=== PATIENT | female | born 1980 | race Caucasian/White ===

== ENCOUNTER 2019-12-29 23:01 | Emergency (ER) | payer SELFPAY ==
[~2019-12-29] VITALS: Ht 149.9 cm; Wt 52.3 kg
[2019-12-29 23:06] VITALS: BP 154/95; Ht 149.9 cm; Wt 52.3 kg
== END 2019-12-30 00:21 | disposition home or self-care (01) ==
LOC: D.ER 23:01
DX: G43.909 Migraine, unspecified, not intractable, without status migrainosus (principal); R11.0 Nausea

== ENCOUNTER 2021-04-01 02:47 | Emergency (ER) | payer MEDICAID ==
[~2021-04-01] VITALS: Ht 149.9 cm; Wt 54.5 kg
[2021-04-01 02:50] VITALS: BP 90/52; Ht 149.9 cm; Wt 54.5 kg
[2021-04-01] MEDS ORDERED: BACLOFEN10 MG PO (02:54)
[2021-04-01] MEDS ORDERED: BUTALB-APAP-CA1 EACH PO (02:55)
[2021-04-01] MEDS ORDERED: COLACE100 MG PO (02:55)
[2021-04-01] MEDS ORDERED: CIPRO500 MG PO (02:55)
[2021-04-01] MEDS ORDERED: NEURONTIN 300300 MG PO (02:56)
[2021-04-01] MEDS ORDERED: CYMBALTA30 MG PO (02:56)
[2021-04-01] MEDS ORDERED: MUCINEX600 MG PO (02:56)
[2021-04-01] MEDS ORDERED: ATIVAN1 MG PO (02:57)
[2021-04-01] MEDS ORDERED: HYDROCODON-ACE1 EA10 PO (02:57)
[2021-04-01] MEDS ORDERED: DULCOLAX10 MG/SUPP RC (02:57)
[2021-04-01] MEDS ORDERED: ZOFRAN ODT4 MG/UDTAB PO (02:59)
[2021-04-01] MEDS ORDERED: MIDODRINE HCL10 MG PO (02:59)
[2021-04-01] MEDS ORDERED: PROTONIX40 MG PO (02:59)
[2021-04-01] MEDS ORDERED: TRAZODONE HCL100 MG PO (03:00)
[2021-04-01 03:37] LABS: BASOPHILS 0.7 % (0-2); EOSINOPHILS 4.8 % (0-7); HEMOGLOBIN 11.1 g/dL (12-16); LYMPHOCYTES 33.5 % (15-50); MCH 24.4 pg (26.0-34.0); MCHC 31.8 g/dL (31.0-37.0); MCV 76.9 fL (80.0-100.0); MEAN PLATELET VOLUME 7.1 fL (7.4-10.4); MONOCYTES 7.9 % (2-11); NEUTROPHILS 53.1 % (40-80); PLATELET COUNT 320 10x3/uL (130-400); RBC 4.56 10x6/uL (4.00-5.40); RDW 18.7 % (11.5-14.5); WBC 8.2 10x3/uL (4.8-10.8)
[2021-04-01 03:42] LABS: CALC OSMOLALITY 280 mosm/kg (275-300); CALCIUM 9.5 mg/dL (8.5-10.1); CARBON DIOXIDE 25.7 mmol/L (21.0-32.0); CHLORIDE - SERUM 102 mmol/L (98-107); CREATININE - SERUM 0.5 mg/dL (0.6-1.3); GLUCOSE 105 mg/dL (74-106); POTASSIUM - SERUM 3.6 mmol/L (3.5-5.1); SODIUM 139 mmol/L (136-145); UREA NITROGEN 20 mg/dL (7-18); eGFR NON AFRICAN AMERICAN > 90 mL/min (90-120)
[2021-04-01 03:53] LABS: ALBUMIN 3.3 g/dL (3.4-5.0); ALKALINE PHOSPHATASE 114 U/L (30-120); ALT (SGPT) 26 U/L (10-68); BILIRUBIN - TOTAL 0.23 mg/dL (0.2-1.3); MAGNESIUM - SERUM 1.8 mg/dL (1.8-2.4); PROTEIN - SERUM 7.6 g/dL (6.4-8.2)
[2021-04-01 05:41] LABS: BILIRUBIN NEGATIVE (NEGATIVE); KETONE NEGATIVE (NEGATIVE); NITRITE NEGATIVE (NEGATIVE); UROBILINOGEN NORMAL mg/dL (< 2)
[2021-04-01 05:43] LABS: BACTERIA FEW HPF (NONE SEEN); SQUAMOUS EPITHELIAL 0-5 HPF (0-4)
[2021-04-01] MEDS ORDERED: ULTRAM50 MG PO (05:53)
[2021-04-01] MEDS ORDERED: LIORESAL 10 MG10 MG PO (05:53)
[2021-04-01] MEDS ORDERED: ELIQUIS2.5 MG PO (06:33)
== END 2021-04-01 08:12 | disposition home or self-care (01) ==
LOC: D.ER 02:47
PROVIDERS: Emergency Medicine
DX: E86.0 Dehydration (principal); G82.52 Quadriplegia, C1-C4 incomplete; R25.2 Cramp and spasm